=== PATIENT | female | born 2000 | race Caucasian/White ===

== ENCOUNTER 2018-07-22 15:14 | Emergency (ER) | payer OTHER ==
[~2018-07-22] VITALS: Ht 165.1 cm; Wt 49.9 kg
--- NOTE | 2018-07-22 15:37 | NUR ---
ED Nurse Note: Pt from home came in due to lower sternum CP that radiates to her back x 3 days. Denies N/V/D. Pt is AAO x4, ambulatory with no respiratory distress. VSS.
[2018-07-22 16:00] VITALS: BP 135/90
[2018-07-22] MEDS ORDERED: TYLENOL EXTRA500 MG ORAL (16:12)
[2018-07-22] MEDS ORDERED: ROBAXIN-750750 MG PO (16:12)
[2018-07-22] MEDS ORDERED: Methocarbamol 750mg tab ORAL ONE (16:15)
[2018-07-22 16:30] VITALS: BP 129/88
--- NOTE | 2018-07-22 16:30 | NUR ---
ER Nurse Note: Pt seen, treated, medically cleared for discharge by ERMD. Discharge instructions and prescriptions given with repeat verbalizaion by pt. Instructed pt to follow up with primary care phyiscian within one week. Pt a&ox4, VSS, no signs of distress. ID band removed. Left with all belongings, ambulates with steady gait; left with own transportation.
--- NOTE | 2018-07-22 17:25 | Emergency Room Report ---
History of Present Illness General Chief Complaint: Chest Pain Source: Patient Present Illness HPI 18-year-old female presents ED for evaluation. Patient complaining of chest pain. Started 3 days ago. Midsternal, dull, 4 out of 10, also notes pain to the back. Somewhat positional. Denies shortness of breath. Denies alcohol or drug use. Denies smoking. No other aggravating relieving factors. Denies any other associated symptoms Allergies: Coded Allergies: PENICILLINS (Verified Allergy, Unknown, 07/22/18) Patient History Past Medical History: none Past Surgical History: none Pertinent Family History: none Social History: Denies: smoking, alcohol use, drug use Last Menstrual Period: 06/24/2018 Now: No : 0 Para: 0 Immunizations: UTD Reviewed Nursing Documentation: PMH: Agreed; PSxH: Agreed Nursing Documentation-PMH Past Medical History: No Stated History Review of Systems All Other Systems: negative except mentioned in HPI Physical Exam Vital Signs Date Time Temp Pulse Resp B/P (MAP) Pulse Ox O2 Delivery O2 Flow Rate FiO2 07/22/18 15:27 98.8 89 18 140/94 99 Room Air Sp02 EP Interpretation: reviewed, normal General Appearance: no apparent distress, alert, GCS 15, non-toxic Head: normocephalic, atraumatic Eyes: bilateral eye normal inspection, bilateral eye PERRL ENT: hearing grossly normal, normal pharynx, no angioedema, normal voice Neck: full range of motion, supple/symm/no masses Respiratory: lungs clear, normal breath sounds, speaking full sentences, other - reproducible sternal pain Cardiovascular #1: regular rate, rhythm, no edema Cardiovascular #2: 2+ carotid (R), 2+ carotid (L), 2+ radial (R), 2+ radial (L) , 2+ dorsalis pedis (R), 2+ dorsalis pedis (L) Gastrointestinal: normal bowel sounds, non tender, soft, non-distended, no guarding, no rebound Rectal: deferred Genitourinary: normal inspection, no CVA tenderness Musculoskeletal: gait/station normal, normal range of motion, non-tender, tender - upper thoracic paraspinal pain Neurologic: alert, oriented x3, responsive, motor strength/tone normal, sensory intact, speech normal Psychiatric: judgement/insight normal, memory normal, mood/affect normal, no suicidal/homicidal ideation Reflexes: 3+ bicep (R), 3+ bicep (L), 3+ tricep (R), 3+ tricep (L), 3+ knee (R) , 3+ knee (L) Skin: normal color, no rash, warm/dry, well hydrated Lymphatic: no adenopathy Medical Decision Making Diagnostic Impression: Primary Impression: Chest wall pain ER Course Hospital Course 18-year-old female presents ED complaining of reproducible chest wall pain Differential diagnoses include: Rib fracture, NJ/unstable angina, contusion, muscle strain Clinical course Patient placed on stretcher. After initial history, exam reveals female in no acute distress. There is some reproducible sternal pain. Also some reproducible pain to the upper back. Lungs clear. Heart sounds normal EKGnormal sinus rhythm no acute ischemic changes interpreted by me Blood pressure okay, vitals okay discussed findings with patient. Consistent with muscle strain/ costochondritis. I see no reason for further cardiac workup at this time. Patient agrees with plan. Safe for discharge close outpatient follow-up. States she does not have a PMD at this time. We'll provide referrals. Given Tylenol and Robaxin here I. I feel this is a highly complex case requiring extensive working including EKG/Rhythm strip, Xray/CT/US, Blood/urine lab work, repeat exams while in ED, and administration of strong opiates/narcotics for pain control, admission to hospital or close patient follow up. Diagnosis - chest wall pain Stable and discharged to home with prescription for tylenol/robaxin. Instructed to followup with PMD. Return to ED if symptoms recur or worsen EKG Diagnostic Results Rate: normal Rhythm: NSR ST Segments: no acute changes ASA given to the pt in ED: No Rhythm Strip Diag. Results EP Interpretation: yes Rhythm: NSR, no PVC's, no ectopy Last Vital Signs Date Time Temp Pulse Resp B/P (MAP) Pulse Ox O2 Delivery O2 Flow Rate FiO2 07/22/18 16:30 98.3 89 20 129/88 100 Room Air Status: improved Disposition: HOME, SELF-CARE Condition: Stable Scripts Methocarbamol* (ROBAXIN-750*) 750 Mg Tablet 750 MG PO TID, #21 TAB 0 Refills Prov: True Liao MD 07/22/18 Acetaminophen* (TYLENOL EXTRA STRENGTH*) 500 Mg Tablet 500 MG ORAL Q8H PRN for Prn Headache/Temp > 101, #30 TAB 0 Refills Prov: True Liao MD 07/22/18 Referrals: [facility],REFERRING (PCP) [facility] Patient Instructions: Chest Wall Pain, Qttm-lr-Libr True Liao MD Jul 22, 2018 17:25
== END 2018-07-22 16:30 | disposition home or self-care (01) ==
LOC: EMR 16:15
DX: R07.89 Other chest pain (principal); Z88.0 Allergy status to penicillin
CPT/HCPCS: 93005; 99283